=== PATIENT | female | born 1985 | race Caucasian/White ===

== ENCOUNTER 2019-08-26 14:38 | Emergency (ER) | payer MEDICAID, OTHER ==
[~2019-08-26] VITALS: Ht 160 cm; Wt 90.7 kg
[2019-08-26 14:43] VITALS: BP 146/74
--- NOTE | 2019-08-26 14:46 | NUR ---
PT TAKEN TO BED 2.
[2019-08-26] MEDS ORDERED: ACETAMINOPHEN 325 MG TAB ONE (14:48)
[2019-08-26] MEDS ORDERED: ACETAMINOPHEN 325 MG TAB PO ONE (14:50)
--- NOTE | 2019-08-26 14:53 | NUR ---
34 Y/O F PRESENTS TO ER C/O HEADACHE, BODY ACHES, AND CHEST DISCOMFORT X 3 DAYS. PT ALSO C/O SORE THROAT. PAIN LEVEL 8/10, ACHING. PT CURRENT TEMPERATURE 100.8, GIVEN IBROFEN IN TRIAGE. PT DENIES COUGH, RUNNY NOSE, OR EAR PAIN. DENIES N/V/D. DENIES URINARY SYMTPOMS. HOB ELEVATED, BED IN LOWEST POSITION, SIDE RAIL UP X1. WAITING FOR ERMD TO EVALUATE PT. ALLERGIES: NKA MED HX: NONE
[2019-08-26] MEDS ORDERED: DEXAMETHASONE 10 MG/ML VIAL IM ONE (15:15)
--- NOTE | 2019-08-26 15:16 | NUR ---
SWAB COLLECTED FOR STREPT THROAT
[2019-08-26] MEDS ORDERED: HYDROcodone/APAP 5/325 MG 1 TAB TAB PO ONE (15:20)
[2019-08-26 16:03] VITALS: BP 146/74
--- NOTE | 2019-08-26 16:03 | NUR ---
Patient discharged with v/s stable. Written and verbal after care instructions given and explained. Pt encouraged to rest, drink plenty of fluids and take all antibiotics as prescribed. Patient alert, oriented and verbalized understanding of instructions. Ambulatory with steady gait. All questions addressed prior to discharge. ID band removed. Patient advised to follow up with PMD. Rx of PENICILLIN VK 500MG AND NORCO 5MG WAS given. Patient educated on indication of medication including possible reaction and side effects. Opportunity to ask questions provided and answered.
== END 2019-08-26 16:03 | disposition home or self-care (01) ==
LOC: MED 14:38
DX: J03.90 Acute tonsillitis, unspecified (principal)
CPT/HCPCS: 81002; 81025; 87081; 96372; 99283; J1100

== ENCOUNTER 2019-09-21 21:32 | Inpatient (IN) | payer MEDICAID ==
[~2019-09-21] VITALS: Ht 160 cm; Wt 90.7 kg
[2019-09-21 21:38] VITALS: BP 140/77
--- NOTE | 2019-09-21 21:38 | NUR ---
TO LOBBY A/W BED AMBULATORY
[2019-09-21 22:19] LABS: APPEARANCE,URINE CLEAR (CLEAR); BILIRUBIN,URINE NEGATIVE (NEGATIVE); BLOOD, URINE 2+ (NEGATIVE); COLOR,URINE YELLOW (YELLOW); LEUKOCYTE ESTERASE ,URINE TRACE (NEGATIVE); NITRITE, URINE NEGATIVE (NEGATIVE); UGLUCOSE NEGATIVE (NEGATIVE)
--- NOTE | 2019-09-21 22:35 | NUR ---
PT TAKEN TO BED 7
[2019-09-21 22:49] LABS: RBC,URINE 0-5 /HPF (0-5); WBC,URINE 0-5 /HPF (0-5)
--- NOTE | 2019-09-21 22:56 | NUR ---
34 Y/O FEMALE C/O ABD PAIN X 1 WEEK. RATES PAIN 10/10 AND DESCRIBES IT PRESSURE AND ACHING. ABD PAIN IN THE EPIGASTRIC REGION. BS ACTIVE, ROUND,FLAT, TENDERNESS ON EPIGASTRIC PAIN. VSS. PT STATES THE PAIN COMES AFTER SHE EATS. LAST DOSE OF IBUPROFEN WAS THIS AM. NO V,D,DENIES ANY BLOOD IN STOOL OR URINE OR VOMIT. DENEIS DYSURIA. NKA. NO PMH.
[2019-09-21] MEDS ORDERED: DICYCLOMINE HCL LIQUID 20 MG, ALUMINUM HYD/MAG/SIMETHICONE 30 ML, LIDOCAINE VISCOUS 2% ... PO ONE ×3 (23:50)
[2019-09-22 00:07] LABS: BASOPHILS % (AUTO) 0.2 % (0.0-2.0); EOSINOPHILS % (AUTO) 0.4 % (0.0-4.0); HEMOGLOBIN 11.5 g/dL (12.0-16.0); LYMPHOCYTES # (AUTO) 2.2 K/uL (2.5-16.5); LYMPHOCYTES % (AUTO) 20.8 % (20.5-51.1); MEAN CORPUSCULAR HEMOGLOBIN 27 pg (27-31); MEAN CORPUSCULAR HGB CONC 32 g/dL (33-37); MEAN CORPUSCULAR VOLUME 83.7 fL (80-94); MONOCYTES # (AUTO) 0.7 K/uL (0.8-1.0); MONOCYTES % (AUTO) 6.3 % (1.7-9.3); NEUTROPHILS # (AUTO) 7.6 K/uL (1.8-7.7); NEUTROPHILS % (AUTO) 72.3 % (42.2-75.2); PLATELET COUNT (AUTO) 315 K/uL (140-450); RED CELL DISTRIBUTION WIDTH 16.4 % (11.6-13.7); WHITE BLOOD COUNT (AUTO) 10.6 K/uL (4.8-10.8)
[2019-09-22 00:27] LABS: ALBUMIN 3.6 g/dL (3.4-5.0); ANION GAP 13.5 (8-16); CARBON DIOXIDE 27.4 mmol/L (21-32); CREATININE 0.6 mg/dL (0.6-1.3); POTASSIUM 3.9 mmol/L (3.5-5.1); TOTAL BILIRUBIN 0.3 mg/dL (0.0-1.0)
[2019-09-22] MEDS ORDERED: MORPHINE SULFATE 4 MG/ML SYR IM ONE (00:35)
--- NOTE | 2019-09-22 00:59 | NUR ---
CALLED LAB FOR PREG RESULTS. RESULTS ARE NEG.
--- NOTE | 2019-09-22 01:52 | NUR ---
PT TAKEN TO CT
--- NOTE | 2019-09-22 01:53 | NUR ---
pt transfer to ct via wheelchair.
--- NOTE | 2019-09-22 02:03 | NUR ---
pt returned back from ct via wheelchair.
[2019-09-22] MEDS ORDERED: MORPHINE SULFATE 4 MG/ML SYR IVP ONE (02:50)
[2019-09-22] MEDS ORDERED: ONDANSETRON 4 MG/2 ML VIAL IVP ONE (02:50)
[2019-09-22] MEDS ORDERED: KETOROLAC 30 MG/ML VIAL IVP ONE (02:50)
--- NOTE | 2019-09-22 03:12 | NUR ---
IV STARTED 20 GUAGE TO LAC.
[2019-09-22] MEDS ORDERED: DOCUSATE SODIUM 100 MG GELCAP PO PRN (04:15)
[2019-09-22] MEDS ORDERED: HYDROcodone/APAP 5/325 MG 1 TAB TAB PO PRN ×2 (04:15→13:35)
[2019-09-22] MEDS ORDERED: ONDANSETRON 4 MG/2 ML VIAL IM/IVP PRN (04:15)
[2019-09-22 04:59] LABS: PROTHROMBIN TIME 11.3 secs (10.8-13.4)
[2019-09-22 05:03] LABS: MAGNESIUM 1.8 mg/dL (1.8-2.4); PHOSPHORUS 4.1 mg/dL (2.5-4.9); THYROID STIMULATING HORMONE 0.93 uIU/mL (0.34-3.74)
[2019-09-22] MEDS: NACL 0.9% 1,000 ML IV SCH ×2 (05:15→21:40)
--- NOTE | 2019-09-22 05:34 | NUR ---
STARTED ANOTHER IV 20 GUAGE ON RAC.
--- NOTE | 2019-09-22 05:40 | NUR ---
INSTRUCTED PT TO BE NPO. JOAO BLOOD AND LAB COLLECED IT. STARTED IV FLUIDS. COLLECTED URINE. AND STARTED ROCHEPIN AT THIS TIME.
[2019-09-22] MEDS ORDERED: cefTRIAXone 1,000 MG VIAL ONE ×2 (05:47→05:48)
--- NOTE | 2019-09-22 06:08 | NUR ---
XR AT BEDSIDE.
--- NOTE | 2019-09-22 06:55 | NUR ---
SPOKE TO RUBÉN FROM [facility] AND SAID TO HAVE PT NPO AND NO NARCOTICS OR OPIATES GIVEN UNTIL HIDA SCAAN IS DONE. HIDA SCAN WILL BE DONE AT [phone] TODAY.
--- NOTE | 2019-09-22 07:25 | NUR ---
Pt report given to jorge sandoval. Transfer of care at this time.
[2019-09-22 07:30] VITALS: BP 121/58
--- NOTE | 2019-09-22 07:30 | NUR ---
RECEIVED PATIENT FROM ED NURSEEDMOND VIA WHEELCHAIR. PATIENT IS AAOX4. NO SIGNS OF DISTRESS NOTED. RESPIRATIONS EVEN AND UNLABORED, 18 BREATHS PER MINUTE, ON ROOM AIR. PATIENT IS NPO AT THIS TIME. VITAL SIGNS 121/58. HR 50, O2SAT 97%, TEMP 98.6 ORAL. NO C/O PAIN. NO EDEMA NOTED. LAST BM 09/21/2019. PATIENT IS AMBULATORY. SKIN INTACT. IV ON LEFT AC G 20 RUNNING NS AT 60 ML/HR AND RIGHT ACT G 20 SALINE LOCK. BED IN LOW POSITION. CALL LIGHT WITHIN REACH. WILL CONTINUE TO MONITOR.
--- NOTE | 2019-09-22 07:35 | NUR ---
Patient will be admitted to care of DR MANZANARES. Admited to MS. Will go to room 125A. Belongings list completed. Report to SANTOSH BOWLES.
--- NOTE | 2019-09-22 09:21 | NUR ---
PATIENT IS RESTING AT THIS TIME. NO SIGNS OF DISTRESS NOTED. WILL CONTINUE TO MONITOR.
--- NOTE | 2019-09-22 09:57 | NUR ---
PATIENT HAS BEEN SCREENED AND CATEGORIZED LOW NUTRITION RISK. PATIENT WILL BE SEEN WITHIN 7 DAYS OF ADMISSION. 09/28/[address]
[2019-09-22 10:18] LABS: BARBITURATE, URINE NEG. ng/ml (NEG <=200); BENZODIAZEPINE, URINE NEG. ng/mL (NEG <=200); CANNABINOID, URINE NEG. ng/mL (NEG <=50); COCAINE, URINE NEG. ng/mL (NEG <=300); OPIATE, URINE NEG. ng/mL (NEG <=2000); PHENCYCLIDINE SCREEN,URINE NEG. ng/mL (NEG <=25)
--- NOTE | 2019-09-22 11:28 | NUR ---
OBTAINED CONSENT FOR LAPAROSCOPIC CHOLECYSTECTOMY. CODING COMPLIANCE SPECIALIST USED, DENISE #[id number]. PATIENT VERBALIZED UNDERSTANDING AND SIGNED THE CONSENT.
--- NOTE | 2019-09-22 11:40 | NUR ---
PATIENT IS OFF UNIT FOR SCHEDULED LAPAROSCOPIC CHOLECYSTECTOMY.
[2019-09-22] MEDS ORDERED: MEPERIDINE 50 MG/ML SYR ONE (11:52)
[2019-09-22] MEDS ORDERED: fentaNYL 0.05 MG/ML VIAL ONE ×2 (11:53→11:54)
[2019-09-22] MEDS ORDERED: MIDAZOLAM 2 MG/2 ML VIAL ONE (11:53)
[2019-09-22] MEDS: LACTATED RINGERS 1,000 ML IV SCH ×2 (12:26→20:46)
[2019-09-22] MEDS ORDERED: ONDANSETRON 4 MG/2 ML VIAL IVP PRN (12:30)
[2019-09-22] MEDS ORDERED: diphenhydrAMINE 50 MG/ML VIAL IVP PRN (12:30)
[2019-09-22] MEDS ORDERED: MEPERIDINE 25 MG/ML SYR IVP PRN (12:30)
[2019-09-22] MEDS ORDERED: HYDROmorphone 1 MG/ML AMP IVP PRN ×2 (12:30→13:35)
[2019-09-22] MEDS ORDERED: BUPIVACAINE-MPF/EPI 0.25% 30 ML VIAL INJ ONE (13:55)
--- NOTE | 2019-09-22 14:25 | NUR ---
PATIENT CAME BACK FROM SURGERY VIA GURNEY. PATIENT IS AWAKE. C/O PAIN 10/10, EPIGASTRIC AREA. BP 114/72. HR 59. TEMP 98.7 ORAL, RESPIRATIONS 16 BREATHS PER MINUTE, EVEN AND UNLABORED. 4 SURGICAL INCISIONS CLOSED WITH DERMABOND. SISTER, PATTI AT BEDSIDE. CALL LIGHT WITHIN REACH. BED IN LOW POSITION.
--- NOTE | 2019-09-22 14:35 | NUR ---
PATIENT C/O SOB. 2L NC OXYGEN GIVEN. WILL CONTINUE TO MONITOR.
[2019-09-22 16:00] VITALS: BP 125/69
[2019-09-22] MEDS: MORPHINE SULFATE 2 MG/ML SYR IVP PRN (17:34)
--- NOTE | 2019-09-22 17:37 | NUR ---
ADMINISTERED MORPHINE FOR PAIN 05/23, EPIGASTRIC AREA. BP 125/63. HR 72. O2SAT 100, 2L O2 VIA NC. WILL REASSESS PAIN.
--- NOTE | 2019-09-22 19:25 | NUR ---
RECEIVED PT FROM DAY SHIFT NURSE PT MONGOLIAN SPEAKER AAOX4 S/P LAP RJ , 4 SMALL ABDOMINAL SURGICAL INCISION, AMBULATORY, HL ON RT AC PATENT AND IN ON LEFT AC INFUSING WELL DENIES ANY PAIN INITIAL ASSESSMENT DONE
--- NOTE | 2019-09-22 19:26 | NUR ---
ENDORSED PATIENT TO BALLOON DESIGN PRINTER NURSELOREN. PATIENT IS IN STABLE CONDITION.
--- NOTE | 2019-09-22 22:00 | NUR ---
PT DENIES ANY PAIN AND PT IS ASSISTED TO THE RESTROOM
[2019-09-23] VITALS: BP 112/65
--- NOTE | 2019-09-23 01:47 | NUR ---
PT AWAKE WATCHING TV DENIES ANY PAIN REMAIN STABLE AT THIS TIME
[2019-09-23] MEDS: NACL 0.9% 1,000 ML IV SCH (02:17)
--- NOTE | 2019-09-23 04:00 | NUR ---
PT IS ASSISTED TO THE RESTROOM NOT DISTRESS NOTED
[2019-09-23] MEDS: LACTATED RINGERS 1,000 ML IV SCH ×2 (05:06→13:26)
[2019-09-23 06:10] LABS: PHOSPHORUS 3.5 mg/dL (2.5-4.9)
[2019-09-23 06:12] LABS: CHOL/HDL RATIO 2.4 (1-4.5)
[2019-09-23 06:20] LABS: T4 (THYROXINE) 9.2 ug/dL (4.5-12.0)
[2019-09-23 06:44] LABS: BASOPHILS % (AUTO) 0.1 % (0.0-2.0); EOSINOPHILS % (AUTO) 0.1 % (0.0-4.0); HEMATOCRIT 32.5 % (36-48); HEMOGLOBIN 10.5 g/dL (12.0-16.0); LYMPHOCYTES % (AUTO) 19.6 % (20.5-51.1); MEAN CORPUSCULAR HEMOGLOBIN 27 pg (27-31); MEAN CORPUSCULAR HGB CONC 32 g/dL (33-37); MEAN CORPUSCULAR VOLUME 83.9 fL (80-94); MONOCYTES # (AUTO) 0.8 K/uL (0.8-1.0); MONOCYTES % (AUTO) 7.7 % (1.7-9.3); NEUTROPHILS # (AUTO) 7.6 K/uL (1.8-7.7); NEUTROPHILS % (AUTO) 72.5 % (42.2-75.2); PLATELET COUNT (AUTO) 277 K/uL (140-450); RED BLOOD CELL COUNT(AUTO) 3.87 MIL/uL (4.20-5.40); RED CELL DISTRIBUTION WIDTH 16.5 % (11.6-13.7); WHITE BLOOD COUNT (AUTO) 10.5 K/uL (4.8-10.8)
--- NOTE | 2019-09-23 07:00 | NUR ---
;DR KUMAR IS HERE AND SEE THE PT AND ORDERS TO FOLLOW
[2019-09-23 07:14] LABS: ANION GAP 12.6 (8-16); CARBON DIOXIDE 25.4 mmol/L (21-32); CREATININE 0.5 mg/dL (0.6-1.3)
--- NOTE | 2019-09-23 07:15 | NUR ---
RECEIVED BEDSIDE REPORT FROM NIGHTSHIFT NURSE. PT RESTING IN BED UPON ARRIVAL. ABLE TO MAKE NEEDS KNOWN. NO COMPLAINTS AT THIS TIME. RESPIRATIONS EVEN AND UNLABORED WITH NO SOB OR RESPIRATORY DISTRESS. IV SITE IN LEFT AC AND RIGHT AC ARE CLEAN, DRY, AND INTACT. SAFETY MEASURES IN PLACE. WILL CONTINUE TO MONITOR.
[2019-09-23] MEDS ORDERED: ACET-9525 PO (07:55)
[2019-09-23] MEDS ORDERED: DOCU-299 PO (07:55)
[2019-09-23 08:00] VITALS: BP 110/55
[2019-09-23] MEDS ORDERED: ONDA8TAB PO (08:10)
--- NOTE | 2019-09-23 08:15 | NUR ---
ORDER RECEIVED FOR DISCHARGE. WILL FOLLOW UP WITH PAPERWORK.
--- NOTE | 2019-09-23 09:30 | NUR ---
EDUCATED PATIENT ON DR'S ORDERS FOR DISCHARGE. EDUCATED THAT PATIENT WILL BE DISCHARGED ONCE PATIENT AMBULATES, TOLERATES DIET, AND PASSES GAS. PATIENT VERBALIZED UNDERSTANDING. PATIENT INFORMED ME THAT SHE HAS BEEN AMBULATING TO RESTROOM AND BACK WITH NO COMPLAINTS. PATIENT STATED SHE WILL AMBULATE AROUND [facility] LATER. DID NOT ADMINISTER HEPARIN SUBQ D/T PATIENT AMBULATORY AND NOT ON BEDREST. DID NOT SEE AN INDICATION FOR DVT PREVENTION
[2019-09-23 10:08] VITALS: BP 110/55
--- NOTE | 2019-09-23 11:30 | NUR ---
PER DR RG, GAVE PATIENT DULCOLAX AND COLACE TO ASSIST PATIENT IN PASSING GAS. PT WILL BE DISCHARGED THIS AFTERNOON.
[2019-09-23] MEDS ORDERED: BISACODYL 5 MG TABEC PO SCH (12:00)
--- NOTE | 2019-09-23 12:10 | NUR ---
PT AWAKE AND TALKING TO FAMILY AT BEDSIDE UPON ARRIVAL. RESPIRATIONS EVEN AND UNLABORED WITH NO SOB OR RESPIRATORY DISTRESS. ADMINISTERED MEDICATION PRESCRIBED PER MD ORDER. PT TOLERATED WELL. MEDICATION EDUCATION PERFORMED. PT UNDERSTOOD AND COULD VERBALIZE UNDERSTANDING. SAFETY MEASURES IN PLACE. WILL CONTINUE TO MONITOR
[2019-09-23] MEDS: MORPHINE SULFATE 2 MG/ML SYR IVP PRN (13:20)
--- NOTE | 2019-09-23 13:20 | NUR ---
PT LYING IN BED UPON ARRIVAL WITH FAMILY AT BEDSIDE. ASSISTED PT TO THE BATHROOM. PT TOLERATED WELL NO COMPLICATIONS NOTED. PATIENT COMPLAINED OF PAIN BEING A 7/10. PRN PAIN MEDICATION ADMINISTERED PER MD ORDER. EDUCATED PT ON MEDICATION REGIMEN. VERBALIZED UNDERSTANDING. PT TOLERATED WELL. SAFETY MEASURES IN PLACE. WILL CONTINUE TO MONITOR
--- NOTE | 2019-09-23 14:49 | NUR ---
DISCHARGE PLANNIN34 Y/O FEMALE PATIENT FROM HOME, WHO CAME IN DUE TO ABDOMINAL PAIN X 5 DAYS. NO PERTINENT PAST MEDICAL HISTORY. INITIAL DIAGNOSIS OF ACUTE CHOLECYSTITIS. POST OP DAY #1, S/P LAP CHOLECYSTECTOMY. CURRENT LABS INCLUDE WBC 10.5, H/H 10.5/32.5. OBGYN CONSULT WITH DR YA FOR IUD IN UTERINE WALL. SURGICAL CONSULT WITH DR CHAIREZ FOR CHOLECYSTITIS. ON ROCEPHIN IV. FOR POSSIBLE DC TODAY IF PATIENT TOLERATES PO DIET.
== END 2019-09-23 15:34 | disposition home or self-care (01) | DRG 263 ==
LOC: MED 21:32 → MMU 09-22 04:17
PROVIDERS: ADMIT General Practice; ATTEND General Practice
PROC: 0FT44ZZ Resection of Gallbladder, Percutaneous Endoscopic Approach (ICD-10-PCS; principal; 2019-09-22 12:30)
DX: K80.62 Calculus of gallbladder and bile duct with acute cholecystitis without obstruction (principal); D64.9 Anemia, unspecified; E66.9 Obesity, unspecified; N39.0 Urinary tract infection, site not specified; Z68.35 Body mass index [BMI] 35.0-35.9, adult; Z71.3 Dietary counseling and surveillance; N83.201 Unspecified ovarian cyst, right side; Z82.49 Family history of ischemic heart disease and other diseases of the circulatory system; Z83.3 Family history of diabetes mellitus; Z98.891 History of uterine scar from previous surgery
CPT/HCPCS: 36415; 71045; 80048; 80053; 80305; 81001; 81025; 82150; 82374; 83036; 83690; 83735; 84100; 84436; 84443; 85025; 85610; 85730; 86886; 86900; 86901; 87070; 87075; 87081; 87086; 87205; 88304; 93970; 96372; 96374; 96375; 99285; J0696; J1170; J1644; J1885; J2175; J2250; J2270; J2405; J3010; J3490; J7030; J7060; Q0092

== ENCOUNTER 2021-07-24 12:16 | Emergency (ER) | payer MEDICAID, OTHER ==
[~2021-07-24] VITALS: Ht 160 cm; Wt 105.7 kg
[~2021-07-24 12:16] MED LIST: ACET-9525 PO; DOCU-299 PO; ONDA8TAB87 PO
[2021-07-24 12:23] VITALS: BP 139/74
--- NOTE | 2021-07-24 12:25 | NUR ---
PT TAKEN TO JAQUELINE Hutchinson
[2021-07-24] MEDS ORDERED: ACET-8386 PO (13:29)
--- NOTE | 2021-07-24 13:30 | NUR ---
36 Y/O F BIB SELF FROM HOME, C/O HEADACHES AND WAS TOLD BY PHIL CHAPMAN THAT SHE NEEDED TO HAVE SCANS DONE FOR HER HEAD. L SIDED FACIAL PAIN FOR 1 MONTH. PMH: DENIES NKA MED: IBUPROFEN 800MG
[2021-07-24] MEDS ORDERED: KETOROLAC 30 MG/ML VIAL ONE (13:35)
[2021-07-24] MEDS ORDERED: KETOROLAC 30 MG/ML VIAL IM ONE (13:35)
[2021-07-24] MEDS ORDERED: NAPR-54 PO (13:43)
[2021-07-24] MEDS ORDERED: CYCL-711 PO (13:43)
[2021-07-24 13:56] VITALS: BP 134/70
--- NOTE | 2021-07-24 13:57 | NUR ---
Patient discharged with v/s stable. Written and verbal after care instructions given and explained. Patient alert, oriented and verbalized understanding of instructions. Ambulatory with steady gait. All questions addressed prior to discharge. ID band removed. Patient advised to follow up with PMD. Rx of FLEXERIL, AND NAPROXEN given. Patient educated on indication of medication including possible reaction and side effects. Opportunity to ask questions provided and answered.
== END 2021-07-24 19:09 | disposition home or self-care (01) ==
LOC: MED 12:16
DX: M54.81 Occipital neuralgia (principal); R11.0 Nausea; Z90.49 Acquired absence of other specified parts of digestive tract; Z98.890 Other specified postprocedural states; Z79.899 Other long term (current) drug therapy
CPT/HCPCS: 96372; 99283; J1885